=== PATIENT | male | born 1990 ===

== ENCOUNTER 2017-01-05 12:54 | Emergency (ER) | payer SELFPAY ==
[2017-01-05 12:58] VITALS: BP 134/88; PULSE 76; RESP 18; TEMP 97.4; O2SAT 100
--- NOTE | 2017-01-05 13:21 | C.PDOC ---
History Of Present Illness Pt c/o nasal congestion/runny nose and sneezing. Time Seen by Provider: 01/05/17 13:08 History Per: Patient Onset/Duration Of Symptoms: Days (about 1 month) Current Symptoms Are (Timing): Still Present Possible Cause: Seasonal Allergies Associated Symptoms: Other (Nasal congestion) Home/EMS Treatment: Other (Analy) Severity: Moderate Additional History Per: Prior Records Past Medical History Reviewed: Historical Data, Nursing Documentation, Vital Signs Vital Signs: Last Vital Signs Temp 97.4 F L 01/05/17 12:56 Pulse 76 01/05/17 12:56 Resp 18 01/05/17 12:56 BP 134/88 01/05/17 12:56 Pulse Ox 100 01/05/17 12:56 - Medical History PMH: No Chronic Diseases Surgical History: No Surg Hx Family History: States: Unknown Family Hx - Social History Hx Tobacco Use: No Hx Alcohol Use: No Hx Substance Use: No - Immunization History Hx Tetanus Toxoid Vaccination: No Hx Influenza Vaccination: No Hx Pneumococcal Vaccination: No Review Of Systems Except As Marked, All Systems Reviewed And Found Negative. Constitutional: Negative for: Fever, Weakness Eyes: Positive for: Conjunctivae Inflammation (itching, sometimes.). Negative for: Vision Change ENT: Positive for: Nose Congestion. Negative for: Ear Pain, Throat Pain, Throat Swelling Cardiovascular: Negative for: Chest Pain Respiratory: Negative for: Cough, Shortness of Breath Gastrointestinal: Negative for: Vomiting, Abdominal Pain Musculoskeletal: Negative for: Neck Pain Skin: Negative for: Rash Neurological: Negative for: Weakness, Numbness, Seizures, Altered Mental Status Physical Exam - Physical Exam Appears: Non-toxic, No Acute Distress Skin: Normal Color, Warm, Dry, No Rash Head: Atraumatic, Normacephalic Eye(s): bilateral: Normal Inspection, PERRL, EOMI Throat: Normal Neck: Normal ROM, Supple Lymphatic: No Adenopathy Cardiovascular: Rhythm Regular Respiratory: Normal Breath Sounds, No Accessory Muscle Use Gastrointestinal/Abdominal: Soft, No Tenderness Back: No CVA Tenderness Extremity: Normal ROM Neurological/Psych: Oriented x3, Normal Speech, Normal Motor, Normal Sensation ED Course And Treatment O2 Sat by Pulse Oximetry: 100 Pulse Ox Interpretation: Normal Disposition Counseled Patient/Family Regarding: Diagnosis, Need For Followup, Rx Given - Disposition Referrals: [facility] [Outside] Disposition: HOME/ ROUTINE Disposition Time: 13:21 Condition: IMPROVED Additional Instructions: Follow up with your doctor or in the clinic. Return to the ER if you develop worsening of symptoms or if you have any other concerns. Prescriptions: Loratadine/Pseudoephedrine [Claritin-D 24 Hour Tablet] 1 each PO DAILY PRN #30 tab.er.24h PRN Reason: Allergy Symptoms Fluticasone Propionate [Flonase] 2 spr NS DAILY PRN #1 spr PRN Reason: Allergy Symptoms Instructions: Allergic Rhinitis (ED) - Clinical Impression Clinical Impression: Allergic rhinitis
== END 2017-01-05 13:29 | disposition home or self-care (01) ==
LOC: C.ER 12:54
DX: J30.9 Allergic rhinitis, unspecified (principal)